=== PATIENT | female | born 1995 | race Two or more races ===

== ENCOUNTER 2022-04-12 21:30 | Emergency (ER) | payer SELFPAY ==
[~2022-04-12] VITALS: Ht 170.2 cm; Wt 654.0 kg
[2022-04-12 21:33] VITALS: BP 121/69
== END 2022-04-13 03:33 | disposition left against medical advice (07) ==
LOC: ER 21:30
DX: Z53.21 Procedure and treatment not carried out due to patient leaving prior to being seen by health care provider (principal)

== ENCOUNTER 2022-06-02 16:43 | Emergency (ER) | payer SELFPAY ==
[~2022-06-02] VITALS: Ht 162.6 cm; Wt 65.0 kg
[2022-06-02 20:14] VITALS: BP 114/68
== END 2022-06-02 20:17 | disposition home or self-care (01) ==
LOC: ER 16:43
DX: O26.893 Other specified pregnancy related conditions, third trimester (principal); O09.33 Supervision of pregnancy with insufficient antenatal care, third trimester; Z3A.36 36 weeks gestation of pregnancy; Z65.3 Problems related to other legal circumstances
CPT/HCPCS: 76805; 76818; 99284

== ENCOUNTER 2022-12-11 12:18 | Emergency (ER) | payer BC ==
[~2022-12-11] VITALS: Ht 162.6 cm; Wt 75.0 kg
[2022-12-11 12:30] VITALS: BP 123/73; PULSE 78; RESP 16; TEMP 98.7; O2SAT 98
== END 2022-12-11 14:00 | disposition left against medical advice (07) ==
LOC: ER 12:21
DX: Z53.21 Procedure and treatment not carried out due to patient leaving prior to being seen by health care provider (principal)
CPT/HCPCS: 99281